=== PATIENT | male | born 1975 | race Caucasian/White ===

== ENCOUNTER 2022-09-05 17:56 | Emergency (ER) | payer BC, OTHER ==
[~2022-09-05] VITALS: Ht 177.8 cm; Wt 84.0 kg
[~2022-09-05 17:56] MED LIST: NO HOME MEDS
[2022-09-05 18:16] LABS: BASOPHILS # (AUTO) 0.1 X10'3 (0-0.2); BASOPHILS % (AUTO) 0.9 % (0-1); EOSINOPHILS # (AUTO) 0.1 X10'3 (0-0.9); EOSINOPHILS % (AUTO) 0.9 % (0-6); HEMATOCRIT 49.3 % (42.0-52.0); HEMOGLOBIN 17.3 g/dl (14.0-17.9); LYMPHOCYTES # (AUTO) 2.7 X10'3 (1.1-4.8); LYMPHOCYTES % (AUTO) 24.4 % (21-51); MEAN CORPUSCULAR HEMOGLOBIN 33.9 PG (27.0-31.0); MEAN CORPUSCULAR HGB CONC 35.1 g/dL (33.0-36.5); MEAN CORPUSCULAR VOLUME 96.7 FL (78-98); MEAN PLATELET VOLUME 8.1 FL (7.4-10.4); MONOCYTES % (AUTO) 8.7 % (2-12); NEUTROPHILS # (AUTO) 7.1 X10'3 (1.8-7.7); NEUTROPHILS % (AUTO) 65.1 % (42-75); PLATELET COUNT 216 X10'3 (140-440); RED CELL DISTRIBUTION WIDTH 13.1 % (11.5-14.5); WHITE BLOOD COUNT 10.9 X10'3 (4.5-11.0)
[2022-09-05 18:33] LABS: ALANINE AMINOTRANSFERASE 33 U/L (12-78); ALBUMIN 4.2 G/DL (3.4-5.0); ALBUMIN/GLOBULIN RATIO 1.4 (1.1-1.5); ALKALINE PHOSPHATASE 84 IU/L (46-116); ANION GAP 16 (8-16); ASPARTATE AMINO TRANSFERASE 20 U/L (10-37); BILIRUBIN,TOTAL 1.2 MG/DL (0.1-1.0); BLOOD UREA NITROGEN 12 MG/DL (7-18); BUN/CREATININE RATIO 10.8 (5.4-32.0); CALCIUM 9.2 MG/DL (8.5-10.1); CHLORIDE 105 MMOL/L (99-107); CREATININE 1.11 MG/DL (0.60-1.10); GLUCOSE 142 MG/DL (70-104); MAGNESIUM 2.2 MG/DL (1.5-2.4); POTASSIUM 3.5 MMOL/L (3.5-5.1); SODIUM 142 MMOL/L (135-145); TOTAL CARBON DIOXIDE 20.7 MMOL/L (24-32); TOTAL PROTEIN 7.3 G/DL (6.4-8.2); eGFR 70 ML/MIN
[2022-09-05] MEDS ORDERED: famotidine/PF 10 mg/ml inj IV ONE (19:45)
[2022-09-05] MEDS ORDERED: normal saline 1000ML IV soln IVB ONE (19:45)
[2022-09-05 20:05] LABS: D-DIMER < 0.19 MG/L FEU (0-0.50)
--- NOTE | 2022-09-05 21:01 | NUR ---
Patient assessment charting reviewed.
[2022-09-05 21:21] VITALS: BP 115/82
== END 2022-09-05 21:23 | disposition home or self-care (01) ==
LOC: ER 17:57
DX: R00.2 Palpitations (principal); R07.9 Chest pain, unspecified; Z79.899 Other long term (current) drug therapy
CPT/HCPCS: 36415; 71045; 80053; 83735; 83880; 84484; 85025; 85379; 93005; 96361; 96374; 99285; J3490; J7030

== ENCOUNTER 2023-09-22 11:00 | Day surgery (SDC) | payer OTHER ==
[2023-09-20 16:25] LABS: BASOPHILS # (AUTO) 0.1 X10'3 (0-0.2); BASOPHILS % (AUTO) 0.7 % (0-1); EOSINOPHILS # (AUTO) 0.1 X10'3 (0-0.9); EOSINOPHILS % (AUTO) 1.7 % (0-6); HEMATOCRIT 48.5 % (42.0-52.0); HEMOGLOBIN 16.6 g/dl (14.0-17.9); LYMPHOCYTES # (AUTO) 1.5 X10'3 (1.1-4.8); LYMPHOCYTES % (AUTO) 20.5 % (21-51); MEAN CORPUSCULAR HEMOGLOBIN 33.3 PG (27.0-31.0); MEAN CORPUSCULAR HGB CONC 34.3 g/dL (33.0-36.5); MEAN CORPUSCULAR VOLUME 97.2 FL (78-98); MEAN PLATELET VOLUME 8.6 FL (7.4-10.4); MONOCYTES # (AUTO) 0.6 X10'3 (0-0.9); MONOCYTES % (AUTO) 8.5 % (2-12); NEUTROPHILS # (AUTO) 5.1 X10'3 (1.8-7.7); NEUTROPHILS % (AUTO) 68.6 % (42-75); PLATELET COUNT 183 X10'3 (140-440); RED BLOOD COUNT 4.99 X10'6 (4.70-6.10); RED CELL DISTRIBUTION WIDTH 12.9 % (11.5-14.5); WHITE BLOOD COUNT 7.5 X10'3 (4.5-11.0)
[2023-09-20 16:40] LABS: ALANINE AMINOTRANSFERASE 29 U/L (12-78); ALBUMIN 3.7 G/DL (3.4-5.0); ALKALINE PHOSPHATASE 82 IU/L (46-116); ANION GAP 8 (8-16); ASPARTATE AMINO TRANSFERASE 22 U/L (10-37); BLOOD UREA NITROGEN 15 MG/DL (7-18); BUN/CREATININE RATIO 16.1 (10.0-20.0); CALCIUM 9.2 MG/DL (8.5-10.1); CHLORIDE 104 MMOL/L (99-107); CREATININE 0.93 MG/DL (0.60-1.10); GLUCOSE 101 MG/DL (70-104); POTASSIUM 4.1 MMOL/L (3.5-5.1); SODIUM 141 MMOL/L (135-145); TOTAL CARBON DIOXIDE 29.1 MMOL/L (24-32); TOTAL PROTEIN 7.5 G/DL (6.4-8.2); eGFR 86 ML/MIN
[~2023-09-22] VITALS: Ht 177.8 cm; Wt 92.5 kg
[2023-09-22] VITALS (13 sets, daily range): BP systolic 108–127; BP diastolic 50–85; PULSE 61–79; RESP 11–22; TEMP 98.4; O2SAT 79–98
[~2023-09-22 11:00] MED LIST changes: +DOCUMENT DATE & TIME OF BETA-BLOCKER PO ONE; +METO-395 PO; -NO HOME MEDS; +albuterol 2.5 MG/3 ML nebule NEB ONE; +cefazolin 2gm/D5W 100mL 100 ML IV ONE; +famotidine 20mg tablet PO ONE; +ringers solution, lacted 1,000 ML IV SCH
[2023-09-22] MEDS ORDERED: LIDOcaine 1% (10mg/ml)w/preservative inj. 20ml MDV ONE (12:00)
[2023-09-22] MEDS ORDERED: BUPIVAcaine/PF 2.5mg/ml (0.25%) 10ml vial ONE (12:00)
[2023-09-22] MEDS ORDERED: BUPIVAcaine 2.5mg/ml inj 50ml vial (contains preservative) ONE (14:07)
[2023-09-22] MEDS ORDERED: LIDOcaine 1% 30ml preserv. free vial ONE (14:07)
[2023-09-22] MEDS ORDERED: neostigmine methylsulfate 1 MG/ML 10ml vial ONE (14:15)
[2023-09-22] MEDS ORDERED: glycopyrrolate 0.2mg/ml inj ONE (14:15)
[2023-09-22] MEDS ORDERED: sevoflurane 250ml liquid IH ONE (14:15)
[2023-09-22] MEDS ORDERED: dexamethasone sod phosphate 10mg/ml inj ONE (14:15)
[2023-09-22] MEDS ORDERED: fentaNYL/PF 50MCG/1 ML 2ML syringe ONE (14:24)
[2023-09-22] MEDS ORDERED: midazolam 1 mg/ML 2ml injection ONE (14:24)
[2023-09-22] MEDS ORDERED: acetaminophen 1,000mg/100ml IV 100 ML IV ONE (14:33)
[2023-09-22] MEDS ORDERED: propofol inj 20 ML IV ONE (14:33)
[2023-09-22] MEDS ORDERED: rocuronium 10mg/ml inj IV ONE (14:34)
[2023-09-22] MEDS ORDERED: ondansetron/PF 4mg/2ml inj ONE (14:34)
[2023-09-22] MEDS ORDERED: LIDOcaine 1%/PF 5ML 10 MG/ML VIAL ONE (14:34)
[2023-09-22] MEDS ORDERED: LIDOcaine 1% 30ml preserv. free vial IJ ONE (15:02)
[2023-09-22] MEDS ORDERED: BUPIVAcaine 0.25% w/Epi /PF 30ml vial IJ ONE (15:03)
[2023-09-22] MEDS ORDERED: hydrALAZINE 20mg/ml inj. IV PRN (15:05)
[2023-09-22] MEDS ORDERED: fentaNYL/PF 50MCG/1 ML 2ML syringe IV PRN ×2 (15:05)
[2023-09-22] MEDS ORDERED: labetalol 20mg/4ml (5mg/ml) syringe IV PRN (15:05)
[2023-09-22] MEDS ORDERED: morphine 4 MG/ML inj SYRINge IV PRN (15:05)
[2023-09-22] MEDS ORDERED: ringers solution, lacted 1,000 ML IV SCH (15:05)
[2023-09-22] MEDS ORDERED: ondansetron/PF 4mg/2ml inj IV PRN (15:05)
[2023-09-22] MEDS ORDERED: morphine 2 MG/ML inj. syringe IV PRN (15:05)
[2023-09-22] MEDS ORDERED: HYDROcodone/acetaminophen 5mg/325mg tablet PO PRN (16:00)
[2023-09-22] MEDS ORDERED: LidoCAINE 2% Topical Jelly 11mL syringe MM ONE (18:05)
== END 2023-09-22 18:30 | disposition home or self-care (01) ==
LOC: PAS 11:00
PROVIDERS: ATTEND Surgery
DX: K40.90 Unilateral inguinal hernia, without obstruction or gangrene, not specified as recurrent (principal); F41.9 Anxiety disorder, unspecified; I25.2 Old myocardial infarction; F17.210 Nicotine dependence, cigarettes, uncomplicated; Z79.899 Other long term (current) drug therapy
CPT/HCPCS: 36415; 49650; 80053; 82948; 85025; 93005; 94640; 94760; J0131; J0690; J1100; J2250; J2270; J2405; J2704; J2710; J3010; J3490; J7120; S0020; S2900; Z7512; A4215; A4314; A4618; C1781